=== PATIENT | male | born 1945 | race Hispanic/Latino ===

== ENCOUNTER 2022-04-18 06:49 | Day surgery (SDC) | payer OTHER ==
[2022-04-13 13:37] LABS: BASOPHILS % (AUTO) 0.6 % (0.0-5.0); EOSINOPHILS % (AUTO) 1.1 % (0.0-8.0); HEMATOCRIT 47.6 % (42-54); LYMPHOCYTES % (AUTO) 24.8 % (21.0-51.0); MEAN CORPUSCULAR HEMOGLOBIN 30.4 pg (27.0-33.0); MEAN CORPUSCULAR HGB CONC 33.4 g/dL (32.0-36.0); MONOCYTES % (AUTO) 5.8 % (3.0-13.0); PLATELET COUNT (AUTO) 159 K/uL (130-400); RED BLOOD CELL COUNT(AUTO) 5.23 MIL/uL (4.50-6.20); RED CELL DISTRIBUTION WIDTH 12.7 % (11.0-15.5); WHITE BLOOD COUNT (AUTO) 7.1 K/uL (4.8-10.8)
[2022-04-13 13:45] LABS: APPEARANCE,URINE Clear (CLEAR); BILIRUBIN,URINE Negative (NEGATIVE); COLOR,URINE Yellow (YELLOW); GLUCOSE, URINE (UA) >=1000 mg/dL (NEGATIVE); KETONES,URINE Negative (NEGATIVE); LEUKOCYTE ESTERASE ,URINE Negative (NEGATIVE); NITRATE,URINE Negative (NEGATIVE); OCCULT BLOOD,URINE Negative (NEGATIVE); PROTEIN,URINE Negative (NEGATIVE)
[2022-04-13 13:47] LABS: CREATININE 0.9 mg/dL (0.5-1.5); POTASSIUM 4.4 mmol/L (3.5-5.1)
[2022-04-13 13:48] LABS: INR 0.94 (0.85-1.15); PROTHROMBIN TIME 10.3 SEC (9.6-11.6)
[2022-04-13 13:50] LABS: PARTIAL THROMBOPLASTIN TIME 26.2 SEC (26.3-35.5)
[2022-04-13 13:55] LABS: B-TYPE NATRIURETIC PEPTIDE 7 pg/mL (0-100)
[2022-04-13 14:00] LABS: BACTERIA,URINE None Seen /HPF (None Seen); RBC,URINE None Seen /HPF (0-1); SQUAMOUS EPITHELIAL CELL,UR 0-2 /HPF (0-2); WBC,URINE None Seen /HPF (0-1)
[2022-04-17 09:48] VITALS: BP 140/80
[~2022-04-18] VITALS: Ht 165.1 cm; Wt 75.1 kg
[2022-04-18] VITALS (11 sets, daily range): BP systolic 115–152; BP diastolic 57–67
[~2022-04-18 06:49] MED LIST: AEC81 PO; EMPA25TA PO; INSU100V37 SQ; LEVO100T12 PO; METO-408 PO; ROSU20TA31 PO; SEMA2PEN SQ; TELM40TA8 PO
[2022-04-18] MEDS ORDERED: IOHEXOL-350 50ML VIAL IV ONE (08:21)
[2022-04-18] MEDS ORDERED: HEPARIN 10,000 UNIT/10ML (1,000 UNIT/ML) VIAL ONE (08:21)
[2022-04-18] MEDS ORDERED: NITROGLYCERIN 50MG VIAL ONE (08:21)
[2022-04-18] MEDS ORDERED: MIDAZOLAM HCL 1 MG/ML 2ML VIAL ONE (08:21)
[2022-04-18] MEDS ORDERED: BIVALIRUDIN 250 MG/VIAL IV ONE (08:21)
[2022-04-18] MEDS ORDERED: IOHEXOL-350 75 ML VIAL IV ONE (08:21)
[2022-04-18] MEDS ORDERED: FENTANYL CITRATE PF 50 MCG/1 ML 2ML VIAL ONE (08:22)
[2022-04-18] MEDS ORDERED: LIDOCAINE HCL 400MG/20ML VIAL ONE (08:22)
[2022-04-18] MEDS ORDERED: 0.9%NACL 1000ML 1,000 ML IV ONE (08:26)
[2022-04-18] MEDS ORDERED: ATROPINE 1MG SYG IVP ONE (08:51)
[2022-04-18] MEDS ORDERED: NITROGLYCERIN 0.4 MG SL TAB SL PRN (09:30)
[2022-04-18] MEDS ORDERED: GLUCAGON 1MG KIT 1 MG ML IM PRN (09:30)
[2022-04-18] MEDS ORDERED: 0.9%NACL 1000ML 1,000 ML IV SCH (09:30)
[2022-04-18] MEDS ORDERED: DEXTROSE 50%-WATER 50 ML DISP.SYRIN IV PRN (09:30)
[2022-04-18] MEDS ORDERED: INSULIN HUMULIN R 100 UNIT/ML 3ML SQ SCH (11:30)
== END 2022-04-18 15:00 | disposition home or self-care (01) ==
LOC: DAH 06:49
PROVIDERS: ATTEND Internal Medicine Cardiovascular Disease
DX: I25.118 Atherosclerotic heart disease of native coronary artery with other forms of angina pectoris (principal); I11.9 Hypertensive heart disease without heart failure; E11.9 Type 2 diabetes mellitus without complications; E78.5 Hyperlipidemia, unspecified; E78.2 Mixed hyperlipidemia; Z79.82 Long term (current) use of aspirin; Z79.01 Long term (current) use of anticoagulants; Z79.899 Other long term (current) drug therapy
CPT/HCPCS: 36415; 71045; 80048; 81001; 82948 ×2; 83880; 85025; 85610; 85730; 93005; 93458; A4215; A4216; A4221; A4222; A4223 ×3; A4606; A4663; C1894 ×2; J1644; J2250; J3010; J3490 ×2; J7030; Q9967; 96360; 96361; 99156; 99157; J0461; J0583

== ENCOUNTER → 2023-07-04 | Outpatient (CLI) | payer OTHER ==
[~2023-07-04] MED LIST changes: -METO-408 PO; -ROSU20TA31 PO; +ROSU20TA73 PO; -TELM40TA8 PO
== END | disposition home or self-care (01) ==
LOC: SHCH 14:47
PROVIDERS: ATTEND Internal Medicine Cardiovascular Disease
DX: I11.9 Hypertensive heart disease without heart failure (principal); R06.00 Dyspnea, unspecified; E78.5 Hyperlipidemia, unspecified; E11.9 Type 2 diabetes mellitus without complications
CPT/HCPCS: 93306

== ENCOUNTER → 2024-03-11 | Outpatient (CLI) | payer OTHER | END | disposition home or self-care (01) | LOC: SHCH 08:59 | PROVIDERS: ATTEND Internal Medicine Cardiovascular Disease | DX: I70.8 Atherosclerosis of other arteries (principal); I73.9 Peripheral vascular disease, unspecified; I87.1 Compression of vein; I87.2 Venous insufficiency (chronic) (peripheral) | CPT/HCPCS: 93925; 93970 ==

== ENCOUNTER 2024-05-26 08:09 | Day surgery (SDC) | payer OTHER ==
[2024-05-21 11:30] LABS: BASOPHILS # (AUTO) 0.04 K/uL (0.00-0.20); BASOPHILS % (AUTO) 0.7 % (0.0-5.0); EOSINOPHILS # (AUTO) 0.16 K/uL (0.00-0.70); EOSINOPHILS % (AUTO) 2.8 % (0.0-8.0); HEMATOCRIT 43.3 % (42-54); IMMATURE GRANULOCYTE ABSOLUTE 0.03 K/uL (0-1); LYMPHOCYTES # (AUTO) 1.2 K/uL (1.0-4.8); LYMPHOCYTES % (AUTO) 21.6 % (21.0-51.0); MEAN CORPUSCULAR HEMOGLOBIN 28.3 pg (27.0-33.0); MEAN CORPUSCULAR HGB CONC 32.1 g/dL (32.0-36.0); MEAN CORPUSCULAR VOLUME 88.2 fL (79-99); MONOCYTES # (AUTO) 0.5 K/uL (0.1-1.0); MONOCYTES % (AUTO) 8.1 % (3.0-13.0); NEUTROPHILS # (AUTO) 3.8 K/uL (1.8-7.7); NEUTROPHILS % (AUTO) 66.3 % (40.0-77.0); PLATELET COUNT (AUTO) 168 K/uL (130-400); RED BLOOD CELL COUNT(AUTO) 4.91 MIL/uL (4.50-6.20); RED CELL DISTRIBUTION WIDTH 14.4 % (11.0-15.5); WHITE BLOOD COUNT (AUTO) 5.7 K/uL (4.8-10.8)
[2024-05-21 11:43] LABS: POTASSIUM 4.3 mmol/L (3.5-5.1)
[2024-05-21 12:09] LABS: INR 0.98 (0.85-1.15); PROTHROMBIN TIME 10.6 SEC (9.6-11.6)
[2024-05-21 12:11] VITALS: BP 144/64; PULSE 78; RESP 18
[2024-05-21 12:11] LABS: PARTIAL THROMBOPLASTIN TIME 27.3 SEC (26.3-35.5)
[~2024-05-26] VITALS: Ht 170.2 cm; Wt 76.7 kg
[2024-05-26] VITALS (9 sets, daily range): BP systolic 127–150; BP diastolic 61–75; PULSE 59; RESP 16–18
[~2024-05-26 08:09] MED LIST changes: +CHOL-34 PO; +CLOP75TA32 PO; -EMPA25TA PO; +INSLAN SQ; -INSU100V37 SQ; +ISOS60TA77 PO; +METF-446 PO; +METO-408 PO; +NITR0.4T50 SL; -SEMA2PEN SQ; +TAMS-1 PO; +TELM40TA8 PO
[2024-05-26] MEDS: 0.9%NACL 1000ML 1,000 ML IV ONE (09:08)
[2024-05-26] MEDS ORDERED: LIDOCAINE HCL 400MG/20ML VIAL ONE (12:23)
[2024-05-26] MEDS ORDERED: HEPARIN 10,000 UNIT/10ML (1,000 UNIT/ML) VIAL ONE (12:24)
[2024-05-26] MEDS ORDERED: NITROGLYCERIN 50MG VIAL ONE (12:24)
[2024-05-26] MEDS ORDERED: IODIXANOL 320 MG/ML 100 ML VIAL ONE (12:26)
[2024-05-26] MEDS ORDERED: FENTANYL CITRATE PF 50 MCG/1 ML 2ML VIAL ONE (12:50)
[2024-05-26] MEDS ORDERED: MIDAZOLAM HCL 1 MG/ML 2ML VIAL ONE ×2 (12:51→13:36)
[2024-05-26] MEDS ORDERED: IOHEXOL-350 50ML VIAL IV ONE (14:20)
[2024-05-26] MEDS ORDERED: ASPIRIN 81MG CHEW TAB ONE ×2 (14:28→14:30)
[2024-05-26] MEDS ORDERED: CLOPIDOGREL 300MG TAB ONE (14:28)
[2024-05-26] MEDS ORDERED: GLUCAGON 1MG KIT 1 MG ML IM PRN (15:00)
[2024-05-26] MEDS ORDERED: DEXTROSE 50%-WATER 50 ML DISP.SYRIN IV PRN (15:00)
[2024-05-26] MEDS: 0.9%NACL 1000ML 1,000 ML IV SCH (15:27)
[2024-05-26] MEDS ORDERED: INSULIN HUMULIN R 100 UNIT/ML 3ML SQ SCH (16:30)
== END 2024-05-26 18:41 | disposition home or self-care (01) ==
LOC: DAH 08:09
PROVIDERS: ATTEND Internal Medicine Cardiovascular Disease
DX: E11.51 Type 2 diabetes mellitus with diabetic peripheral angiopathy without gangrene (principal); I70.201 Unspecified atherosclerosis of native arteries of extremities, right leg; I11.0 Hypertensive heart disease with heart failure; I50.42 Chronic combined systolic (congestive) and diastolic (congestive) heart failure; I25.118 Atherosclerotic heart disease of native coronary artery with other forms of angina pectoris; E78.2 Mixed hyperlipidemia; I77.9 Disorder of arteries and arterioles, unspecified; I25.5 Ischemic cardiomyopathy; I87.2 Venous insufficiency (chronic) (peripheral); I87.1 Compression of vein; R94.31 Abnormal electrocardiogram [ECG] [EKG]; I44.4 Left anterior fascicular block; Z95.1 Presence of aortocoronary bypass graft; Z95.5 Presence of coronary angioplasty implant and graft; Z79.84 Long term (current) use of oral hypoglycemic drugs; Z79.890 Hormone replacement therapy; Z79.82 Long term (current) use of aspirin; Z79.899 Other long term (current) drug therapy; Z98.890 Other specified postprocedural states; Z83.3 Family history of diabetes mellitus; Z82.49 Family history of ischemic heart disease and other diseases of the circulatory system
CPT/HCPCS: 80048; 85025; 85610; 85730; 36415; 93005; 75625; 75716; 37252; 82948 ×2; C9773; C1887; C1769 ×2; C1894 ×2; C1893; C1760; C1753; C1874; C1725; J3010; J3490 ×2; J7030; J1644 ×2; J2250; Q9967 ×2; A4215; A4222; A4221; A4663; A4216; A4606; A4223 ×3; 99156; 99157

== ENCOUNTER → 2024-06-14 | Outpatient (CLI) | payer OTHER | END | disposition home or self-care (01) | LOC: SHCH 13:50 | PROVIDERS: ATTEND Internal Medicine Cardiovascular Disease | DX: R60.9 Edema, unspecified (principal) | CPT/HCPCS: 93306 ==

== ENCOUNTER → 2024-09-08 | Outpatient (CLI) | payer OTHER ==
[~2024-09-08] MED LIST changes: -ROSU20TA73 PO; +ROSU20TA98 PO
== END | disposition home or self-care (01) ==
LOC: SHCH 12:37
PROVIDERS: ATTEND Internal Medicine Cardiovascular Disease
DX: I73.9 Peripheral vascular disease, unspecified (principal)
CPT/HCPCS: 93925

== ENCOUNTER → 2025-01-26 | Outpatient (CLI) | payer OTHER ==
--- NOTE | 2025-01-28 22:08 | HMCSR ---
APPROVED REPORT Laterality: Bilateral Indications PVD VELOCITY AND DOPPLER WAVEFORM ANALYSIS TRUCK DRIVER SUPERVISOR (R) 87.0cm/sec, Biphasic, TRUCK DRIVER SUPERVISOR (L) 147.3cm/sec, Biphasic, Prof Fem Art. (R) 106.5cm/sec, Biphasic, Prof Fem Art. (L) 57.9cm/sec, Biphasic, Fem Art Prox. (R) 161.5cm/sec, Biphasic, Fem Art Prox. (L) 117.3cm/sec, Biphasic, Fem Art Mid. (R) 129.8cm/sec, Biphasic, Fem Art Mid. (L) 168.1cm/sec, Biphasic, Fem Art Dist (R) 76.7cm/sec, Biphasic, Fem Art Dist. (L) 130.3cm/sec, Biphasic, Pop Art(AK) (R) 76.7cm/sec, Biphasic, Pop Art (AK) (L) 66.4cm/sec, Biphasic, Pop Art (Fossa)(R) 61.2cm/sec, Biphasic, Pop Art (Fossa) (L) 84.5cm/sec, Biphasic, Pop Art(BK) (R) 69.3cm/sec, Biphasic, Pop Art (BK) (L) 62.5cm/sec, Biphasic, BIOTECH PRODUCTION SPECIALIST Dist. (R) 41.7cm/sec, Biphasic, BIOTECH PRODUCTION SPECIALIST Dist. (L) 19.3cm/sec, Monophasic, Per Art Dist. (R) 39.6cm/sec, Biphasic, Per Art Dist. (L) 175.7cm/sec, Biphasic, Mild < 50% KALYAN Dist. (R) 46.9cm/sec, Biphasic, KALYAN Dist. (L) 33.2cm/sec, Biphasic, Technologist Impression Diffuse atherosclerosis throughout the bilateral lower extremities. LT. SHAMA distal elevated velocities of 176 cm/s suggestive of <50% stenosis. Conclusion No evidence of significant PAD Conclusion No evidence of significant PAD
== END | disposition home or self-care (01) ==
LOC: SHCH 10:42
PROVIDERS: ATTEND Internal Medicine Cardiovascular Disease
DX: I70.203 Unspecified atherosclerosis of native arteries of extremities, bilateral legs (principal)
CPT/HCPCS: 93925

== ENCOUNTER → 2025-02-02 | Outpatient (CLI) | payer OTHER | END | disposition home or self-care (01) | LOC: LAB 11:54 | PROVIDERS: ATTEND Internal Medicine Cardiovascular Disease | DX: Z01.812 Encounter for preprocedural laboratory examination (principal); I25.10 Atherosclerotic heart disease of native coronary artery without angina pectoris | CPT/HCPCS: 36415; 80048 ==

== ENCOUNTER → 2025-02-11 | Outpatient (CLI) | payer OTHER ==
[~2025-02-11] MED LIST changes: +IOHEXOL 350 MG/ML 100ML INFUS..BTL IV ONE; +metoPROLOL tartRATE 1 MG/ML 5ML VIAL IV ONE
--- NOTE | 2025-02-11 11:51 | HMCIMG ---
CT CARDIAC ANGIO W/CONT. CCTA HISTORY: Chest pain COMPARISON: None TECHNIQUE: Multiple sequential axial images of the chest were obtained along with the CT angiogram of the chest study. Patient was given 100 cc of Omnipaque through intravenous route. FINDINGS: There is no evidence of pulmonary nodule or parenchymal disease. No pleural effusion or pericardial effusion is seen. There is no evidence of pneumothorax. There are normal size mediastinal and hilar lymph nodes. Coronary arterial calcifications are seen. The heart is not enlarged. Degenerative changes of the thoracolumbar spine are present. IMPRESSION: 1. No evidence of pulmonary nodule or effusion is seen. Please see CT angiogram report of coronary arteries.
== END | disposition home or self-care (01) ==
LOC: RAH 10:22
PROVIDERS: ATTEND Internal Medicine Cardiovascular Disease
DX: I25.110 Atherosclerotic heart disease of native coronary artery with unstable angina pectoris (principal); I25.10 Atherosclerotic heart disease of native coronary artery without angina pectoris; M47.815 Spondylosis without myelopathy or radiculopathy, thoracolumbar region
CPT/HCPCS: 75574; J3490; Q9967